=== PATIENT | female | born 1960 | race Caucasian/White ===

== ENCOUNTER 2019-06-11 06:55 | Day surgery (SDC) | payer OTHER ==
[~2019-06-11] VITALS: Ht 157.5 cm; Wt 97.5 kg
[~2019-06-11 06:55] MED LIST: LISINOPRIL10 MG PO; MELOXICAM15 MG PO; SIMVASTATIN10 MG PO
--- NOTE | 2019-06-11 08:51 | NUR ---
06/11/19 0851 Yoselyn Hitchcock 0842 PT ARRIVED TO PACU ON 2L VIA MASK, RESP EVEN AND UNLABORED. PT DENIES NAUSEA AND PAIN. PT DROWSY. 0849 PT BACK TO SLEEP. 0851 PT SITTING IN HIGH FOLWERS AND SIPPING JUICE PER REQUEST.
--- NOTE | 2019-06-11 09:21 | OR ---
[facility] [address], [place] [address] Signed DATE OF OPERATION: 06/11/2019 SURGEON: Rod Alberto MD PREOPERATIVE DIAGNOSIS: Screening. POSTOPERATIVE DIAGNOSES: 1. Minimal sigmoid diverticulosis. 2. Small internal anal skin tag x1. PROCEDURE: Colonoscopy without biopsy. ESTIMATED BLOOD LOSS: None. INDICATIONS: Deandra is a 59-year-old female, asked to see me for her initial screening colonoscopy. She has no lower GI complaints. There is no family history of colon cancer or polyps. Her has been through a colonoscopy. Consequently, she is familiar with this process. I gave Deandra a pamphlet in the office on colonoscopy. We did review that together along with the risks including, but not limited to gas, bloating, crampy abdominal pain, bleeding, perforation requiring surgery, and missed diagnosis. We also discussed the need for IV conscious sedation. She had expressed understanding and wished to proceed. PROCEDURE NOTE: Deandra was taken into our endoscopy suite and placed in the left lateral decubitus position. She was given IV sedation with 5 mg of Versed and 100 mcg of fentanyl. She also received Zofran 8 mg IV and Phenergan 12.5 mg IV preoperatively for her history of nausea. A digital rectal exam was performed and this was unremarkable. The adult colonoscope was introduced and advanced quite readily up into the cecum itself. She required some additional sedation as the scope was passed. Her prep was quite good. We could easily see the appendiceal orifice and the ileocecal valve. We took several pictures throughout for photodocumentation. She had just a few diverticula in the sigmoid colon. They were small in size, few in number, and scattered about. We saw no polyps. The rectum was unremarkable. Upon retroflexion of the scope, she has a single internal anal skin tag and probably just a tiny bit of internal hemorrhoid tissue. After this, the gas was suctioned out and the colonoscope removed. Jocelynna tolerated Electronically Signed By: ROD ALBERTO MD 06/11/19 0921 PATIENT NAME: DEANDRA WHITE OPERATIVE REPORT DATE OF : 62 REPORT #: [id number] PHYSICIAN: ROD ALBERTO MD PCP: RUDOLPH RAMOS DO REPORT IS CONFIDENTIAL AND NOT TO BE RELEASED WITHOUT AUTHORIZATION [facility] [address] [place] [id number] Signed the procedure quite well. RECOMMENDATIONS: Deandra can return in 10 years for repeat colonoscopy. Rod Alberto MD ALB/NANCYL /[id number] cc: DO Latha Pereira MD Andrew L Bower, MD Copies: RUDOLPH RAMOS PATRICIA J MD BOWER, ANDREW L MD ~ Electronically Signed By: ROD ALBERTO MD 06/11/19 0921 PATIENT NAME: DEANDRA WHITE OPERATIVE REPORT DATE OF : 62 REPORT #: [id number] PHYSICIAN: ROD ALBERTO MD PCP: RUDOLPH RAMOS DO REPORT IS CONFIDENTIAL AND NOT TO BE RELEASED WITHOUT AUTHORIZATION
--- NOTE | 2019-06-11 14:45 | NUR ---
PT WAS ALERT, ORIENTED AND SUPPORTED BY HER [place]. PT EXPRESSED THAT SHE WAS ANXIOUS ABOUT SCOPE,CARMEN RIVAS HAD GIVEN PT SOMETHING TO HELP HER RELAX PT REQUESTED PRAYER, WILL FOLLOW NEEDED
== END 2019-06-11 09:17 | disposition home or self-care (01) ==
LOC: DS 06:55 → OPS 06:55 → DS 08:15 → OPS 08:15
PROVIDERS: Colon & Rectal Surgery
PROC: 0DJD8ZZ Inspection of Lower Intestinal Tract, Via Natural or Artificial Opening Endoscopic (ICD-10-PCS; principal; 2019-06-11 08:15)
DX: Z12.11 Encounter for screening for malignant neoplasm of colon (principal); K57.30 Diverticulosis of large intestine without perforation or abscess without bleeding; K64.4 Residual hemorrhoidal skin tags; E78.5 Hyperlipidemia, unspecified; I10 Essential (primary) hypertension; M06.9 Rheumatoid arthritis, unspecified; M19.90 Unspecified osteoarthritis, unspecified site; Z79.1 Long term (current) use of non-steroidal anti-inflammatories (NSAID); Z79.899 Other long term (current) drug therapy
CPT/HCPCS: 99153; G0500; J2250; J2405; J2550; J3010; J7120